=== PATIENT | female | born 1980 | race Caucasian/White ===

== ENCOUNTER 2023-06-23 12:11 | Emergency (ER) | payer BC, SELFPAY ==
[2023-06-23] VITALS (7 sets, daily range): BP systolic 132–137; BP diastolic 85–87; PULSE 84–101; RESP 18; TEMP 36.4; O2SAT 97–98; BMI 27.9
--- NOTE | 2023-06-23 12:22 | DI.CT.S_ITS ---
PROCEDURE: CT ABDOMEN PELVIS W CON INDICATIONS: Left sided abd pain TECHNIQUE: After the administration of oral and IV contrast, axial sections were acquired from the lung bases to the pubic symphysis. Coronal and sagittal reformats were performed. For radiation dose reduction, the following was used: automated exposure control, adjustment of mA and/or kV according to patient size. COMPARISON: [facility], CT, ABDOMEN/PELVIS WITH CONTRAST, 10/19/2014, 21:44. FINDINGS: Image quality: Excellent. Lung bases: Unremarkable. Heart: No significant findings. ABDOMEN: Liver: Liver is enlarged measuring 20.2 cm with steatosis. Gallbladder: Removed. Biliary ducts: Unremarkable. Pancreas: Unremarkable. Spleen: Unremarkable. Adrenal Glands: 1.4 cm right adrenal mass increased compared to 2015. Kidneys and Ureters: Unremarkable. Stomach and Bowel: Stomach, small bowel loops, and colon are unremarkable. Peritoneum: No abnormal intraperitoneal fluid. No free air. Ventral Wall: No hernia. Abdominal Nodes: No retroperitoneal or mesenteric adenopathy by size criteria. Vessels: Aorta and inferior vena cava are normal in size. PELVIS: Pelvic Organs: Or enhancing focus measuring 1.8 cm in the left adnexa. Bladder: Unremarkable. Pelvic Nodes: No enlarged lymph nodes. Miscellaneous: No inguinal hernias are seen. Bones: Unremarkable. IMPRESSION: Enhancing focus in the left and masses suggestive of involuting hemorrhagic cyst. Enlarged 1.4 cm right adrenal mass. It is overall nonspecific. Further evaluation with CT/MRI with adrenal protocol may be obtained. Dictated by: Rosie Mejia M.D. on 06/23/2023 at 13:47 Approved by: Rosie Mejia M.D. on 06/23/2023 at 13:51
--- NOTE | 2023-06-23 12:25 | ED_ITS ---
HPI - General Adult General Chief complaint: Abdominal Pain Stated complaint: extreme left adbdomin shooting pain Time Seen by Provider: 06/23/23 12:15 Source: patient Mode of arrival: Ambulatory History of Present Illness HPI narrative: Patient is a 42-year-old female. Approximately 24 hours ago she developed left- sided abdominal pain. No urinary symptoms. No change in bowel habits. No skin changes. No fevers. Some nausea but no vomiting. Has had hernia repair and C- sections but no other abdominal tenderness. Related Data Home Medications Medication Instructions Recorded Confirmed metformin 500 mg tablet 500 mg PO QID ##0 08/19/16 (Glucophage) Previous Rx's Medication Instructions Recorded hydrocodone 5 mg-acetaminophen 325 1 tab PO Q4P PRN #30 tabs 09/03/16 mg tablet ([place]) metformin 500 mg tablet 500 mg PO BID #60 tabs 06/23/23 nitrofurantoin 100 mg PO Q12H 5 days #10 caps 06/23/23 monohydrate/macrocrystals 100 mg capsule (Macrobid) Allergies Allergy/AdvReac Type Severity Reaction Status Date / Time No Known Allergies Allergy Uncoded 11/18/17 13:11 Review of Systems Constitutional Constitutional: Reports system reviewed and no additional complaints, except as documented Cardiovascular Cardiovascular: Reports system reviewed and no additional complaints, except as documented Respiratory Respiratory: Reports system reviewed and no additional complaints, except as documented Gastrointestinal Gastrointestinal: Reports system reviewed and no additional complaints, except as documented Genitourinary Genitourinary: Reports system reviewed and no additional complaints, except as documented Integumentary/Breasts Skin/Breast: Reports system reviewed and no additional complaints, except as documented Neurologic Neurologic: Reports system reviewed and no additional complaints, except as documented Patient History Surgical History (Updated 12/08/17 @ 06:35 by Conversion Provider) Status post delivery (09/01/16) Status post laparoscopic cholecystectomy Status post delivery (05/21/13) Status post delivery (02/11/10) Status post delivery (01/06/09) Status post delivery (10/02/07) Social History Smoking Status: Never smoker Smoking Status: Never smoker Substance Use Type: does not use Exam Initial Vital Signs Initial Vital Signs: Vital Signs Temperature 97.6 F 06/23/23 12:18 Pulse Rate 92 H 06/23/23 12:18 Respiratory Rate 18 06/23/23 12:18 Blood Pressure 132/85 06/23/23 12:18 Pulse Oximetry 97 06/23/23 12:18 Oxygen Delivery Method Room Air 06/23/23 12:18 [facility] Head: normal to inspection Resp Effort & Inspection: normal respiratory effort Auscultation: clear to auscultation bilaterally Cardio Rate: regular rate Rhythm: regular rhythm GI Inspection: non-distended Palpation: soft, No firm and No tender Back/Spine/Pelvis Back: No CVA tenderness Neuro General: patient alert, patient awake and moves all extremities Course Orders Ordered: ED Orders 06/23/23 12:22 CT abdomen pelvis w con Stat 06/23/23 12:28 Complete Blood Count AUTO DIFF Stat Comprehensive Metabolic Panel Stat Lipase Stat Test Serum,Qual Stat 06/23/23 12:34 Urine Culture Stat Urine Microscopic Stat 06/23/23 12:37 Urine Culture Stat Vital Signs Vital signs: Vital Signs - 8 hr 06/23/23 12:18 06/23/23 12:19 06/23/23 12:32 Temperature 97.6 F Pulse Rate 92 H 86 101 H Respiratory Rate 18 Blood Pressure 132/85 Pulse Oximetry 97 98 98 Oxygen Delivery Method Room Air 06/23/23 13:00 06/23/23 13:30 06/23/23 14:00 Temperature Pulse Rate 84 85 89 Respiratory Rate Blood Pressure Pulse Oximetry 97 97 98 Oxygen Delivery Method Medical Decision Making Lab Data 06/23/23 12:28 06/23/23 12:28 Labs: Lab Results 06/23/23 06/23/23 Range/Units 12:28 12:34 WBC 8.3 (4.5-11.0) X10^3/uL RBC 4.21 (4.0-5.2) X10^6/uL Hgb 9.8 L (12.0-16.0) g/dL Hct 29.4 L (36-46) % MCV 70.0 L (80-100) fL MCH 23.3 L (26-34) PG MCHC 33.3 (30-36) % RDW 17.2 H (11.6-14.8) % Plt Count 262 (150-400) X10^3/uL Neut % (Auto) 63.0 (50-75) % Lymph % (Auto) 21.2 L (25-40) % Harrison % (Auto) 12.5 (3-14) % Eos % (Auto) 2.2 (2-4) % Baso % (Auto) 1.1 (0-2) % Neut # (Auto) 5200 (1580-0358) /uL Lymph # (Auto) 1800 (7613-6432) /uL Harrison # (Auto) 1000 H (0-900) /uL Eos # (Auto) 200 (0-450) /uL Baso # (Auto) 100 (0-100) /uL Sodium 130 L (137-145) mmol/L Potassium 4.3 (3.4-5.1) mmol/L Chloride 102 (98-107) mmol/L Carbon Dioxide 22 (22-32) mmol/L BUN 14 (7-17) mg/dL Creatinine 0.52 (0.52-1.04) mg/dL Estimated GFR > 60 (>60) mL/min BUN/Creatinine Ratio 26.9 H (6-22) Glucose 345 H (70-100) mg/dL Calcium 9.1 (8.4-10.2) mg/dL Total Bilirubin 0.7 (0.2-1.3) mg/dL AST 16 (14-36) IU/L ALT 11 (<35) IU/L Alkaline Phosphatase 109 (38-126) U/L Total Protein 7.2 (6.3-8.2) g/dL Albumin 3.6 (3.5-5.0) g/dL Globulin 3.6 (1.7-4.1) g/dL Albumin/Globulin Ratio 1.0 (1.0-2.8) Lipase 44 (23-300) U/L Serum , Qual Negative (Negative) Urine RBC None seen (0-5/HPF) Urine WBC 5-10/hpf H (0-5/HPF) Ur Squamous Epith Cells 1-5 /hpf (0-5/HPF) Urine Bacteria Many (>30) H (None) Urine Mucus 1+ H (Negative) Urine Yeast 0-1/hpf (None) Ur Culture Indicated? Specimen cultured Point of Care Testing Test Results Negative Urine Dip Bedside Urine Glucose 1000 mg/dl Bedside Urine Bilirubin - Negative Bedside Urine Ketone - Negative Urine Specific [place] 1.015 Bedside Urine Occult Blood - Negative Bedside Urine pH 5.5 Bedside Urine Protein - Negative Bedside Urine Urobilinogen - Negative Bedside Urine Nitrite + Positive Bedside Urine Leukocytes +/- 15 Esterase Point of care testing: Point of Care Testing Test Results Negative Urine Dip Bedside Urine Glucose 1000 mg/dl Bedside Urine Bilirubin - Negative Bedside Urine Ketone - Negative Urine Specific Crawford 1.015 Bedside Urine Occult Blood - Negative Bedside Urine pH 5.5 Bedside Urine Protein - Negative Bedside Urine Urobilinogen - Negative Bedside Urine Nitrite + Positive Bedside Urine Leukocytes +/- [address] scan - abdomen/pelvis: Radiologist's Impression: PROCEDURE: CT ABDOMEN PELVIS W CON INDICATIONS: Left sided abd pain TECHNIQUE: After the administration of oral and IV contrast, axial sections were acquired from the lung bases to the pubic symphysis. Coronal and sagittal reformats were performed. For radiation dose reduction, the following was used: automated exposure control, adjustment of mA and/or kV according to patient size. COMPARISON: [facility], CT, ABDOMEN/PELVIS WITH CONTRAST, 10/19/2014, 21:44. FINDINGS: Image quality: Excellent. Lung bases: Unremarkable. Heart: No significant findings. ABDOMEN: Liver: Liver is enlarged measuring 20.2 cm with steatosis. Gallbladder: Removed. Biliary ducts: Unremarkable. Pancreas: Unremarkable. Spleen: Unremarkable. Adrenal Glands: 1.4 cm right adrenal mass increased compared to 2015. Kidneys and Ureters: Unremarkable. Stomach and Bowel: Stomach, small bowel loops, and colon are unremarkable. Peritoneum: No abnormal intraperitoneal fluid. No free air. Ventral Wall: No hernia. Abdominal Nodes: No retroperitoneal or mesenteric adenopathy by size criteria. Vessels: Aorta and inferior vena cava are normal in size. PELVIS: Pelvic Organs: Or enhancing focus measuring 1.8 cm in the left adnexa. Bladder: Unremarkable. Pelvic Nodes: No enlarged lymph nodes. Miscellaneous: No inguinal hernias are seen. Bones: Unremarkable. IMPRESSION: Enhancing focus in the left and masses suggestive of involuting hemorrhagic cyst. Enlarged 1.4 cm right adrenal mass. It is overall nonspecific. Further evaluation with CT/MRI with adrenal protocol may be obtained. ECG Data Attestation: I personally reviewed and interpreted this ECG as follows: Interpretation: Sinus rhythm Ventricular rate is 64 First-degree AV block KS interval 2 for 2 milliseconds Right bundle-branch block QRS [address] T wave changes MDM Narrative Medical decision making narrative: Patient's CT scan does show an incidental right-sided adrenal mass. She was informed of this and will follow-up with her primary doctor. She also has nitrite positive urine. No urinary symptoms. Will treat with antibiotics. Culture pending at the time of discharge. She was also hyperglycemic. She was diabetic after her approximately 6 years ago. Stated that she had follow-up afterwards and was told everything was fine. She is not on any diabetes medicines currently. Will discharge patient home with instructions for follow-up. She was given return precautions. She expressed understanding and agreement with plan. Discharge Plan Departure Patient Disposition: Home Clinical Impression: Abdominal pain, Hyperglycemia, Urinary tract infection, Adrenal mass Instructions: DI for Urinary Tract Infection (UTI), DI for Abdominal Pain- Adult, DI for Hyperglycemia -- Adult Activity Restrictions/Additional Instructions: I do recommend that you make contact with the primary doctor for follow-up with regard to the mass that was seen on your right adrenal gland and also your elevated blood sugar. Please take the medications as directed. Return to the emergency department for new or worsening symptoms. Prescriptions: New metformin 500 mg tablet 500 mg PO BID Qty: 60 2RF nitrofurantoin monohyd/m-cryst [Macrobid] 100 mg capsule 100 mg PO Q12H 5 Days Qty: 10 0RF Rx Instructions: must administer with a meal/food No Action metformin [Glucophage] 500 MG tablet 500 mg PO QID Qty: 0 hydrocodone-acetaminophen [[place]] 5 MG/325 MG tablet 1 tab PO Q4P PRNQty: 30 0RF Referrals: Miscellaneous,Doctor, MD [Primary Care Provider] - Stand Alone Forms: Patient Portal/API
[2023-06-23 12:56] LABS: Bacteria Urine Many (>30); RBC Urine None Seen (0-5/HPF); Squamous Epithelial Cell Urine 1-5 /HPF (0-5/HPF); WBC Urine 5-10/HPF (0-5/HPF)
[2023-06-23 12:57] LABS: Culture Indicated Urine Specimen Cultured; Mucus Urine 1+ (Negative)
[2023-06-23 13:06] LABS: Pregnancy Test Serum,Qual Negative (Negative)
[2023-06-23 13:11] LABS: Add Manual Diff / Slide Review NO; Basophils Absolute Auto 100 /uL (0-100); Basophils Percent Auto 1.1 % (0-2); Eosinophils Absolute Auto 200 /uL (0-450); Eosinophils Percent Auto 2.2 % (2-4); Hematocrit 29.4 % (36-46); Hemoglobin 9.8 g/dL (12.0-16.0); Lymphocytes Absolute Auto 1800 /uL (1100-4500); Lymphocytes Percent Auto 21.2 % (25-40); Mean Corpuscular HGB Conc 33.3 % (30-36); Mean Corpuscular Hemoglobin 23.3 PG (26-34); Monocytes Absolute Auto 1000 /uL (0-900); Monocytes Percent Auto 12.5 % (3-14); Neutrophils Absolute Auto 5200 /uL (1500-7000); Platelet Count 262 X10^3/uL (150-400); Red Blood Cell Count 4.21 X10^6/uL (4.0-5.2); Red Cell Distribution Width 17.2 % (11.6-14.8); White Blood Cell Count 8.3 X10^3/uL (4.5-11.0)
[2023-06-23 13:16] LABS: Alanine Aminotransferase 11 IU/L (<35); Albumin 3.6 g/dL (3.5-5.0); Alkaline Phosphatase 109 U/L (38-126); Aspartate Aminotransferase 16 IU/L (14-36); BUN Creatinine Ratio 26.9 (6-22); Bilirubin Total 0.7 mg/dL (0.2-1.3); Blood Urea Nitrogen 14 mg/dL (7-17); Calcium 9.1 mg/dL (8.4-10.2); Carbon Dioxide 22 mmol/L (22-32); Estimated Glomerular Filt Rate > 60 mL/min (>60); Globulin 3.6 g/dL (1.7-4.1); Glucose 345 mg/dL (70-100); HEMOLYSIS 20 (0-50); Lipase 44 U/L (23-300); Total Protein 7.2 g/dL (6.3-8.2)
[2023-06-23 13:33] LABS: Chloride 102 mmol/L (98-107); Potassium 4.3 mmol/L (3.4-5.1); Sodium 130 mmol/L (137-145)
== END 2023-06-23 14:25 | disposition home or self-care (01) ==
PROVIDERS: Emergency Provider Emergency Medicine
DX: E27.8 Other specified disorders of adrenal gland (principal); E11.65 Type 2 diabetes mellitus with hyperglycemia; N39.0 Urinary tract infection, site not specified; R10.9 Unspecified abdominal pain; Z79.899 Other long term (current) drug therapy
CPT/HCPCS: 36415; 74177; 80053; 81003; 81015; 81025; 83690; 84703; 85025; 87077; 87086; 87186; 99283; 99284